=== PATIENT | female | born 1955 | race Caucasian/White ===

== ENCOUNTER → 2019-01-22 | Outpatient (CLI) | payer MEDICARE ==
[2019-01-26 13:08] LABS: HPV 16 Negative (Negative); HPV 18 Negative (Negative); HPV OTHER HR TYPES Negative (Negative)
== END ==
LOC: LAB SHORT 13:21 → LAB 13:21
PROVIDERS: Nurse Practitioner Family
DX: Z12.4 Encounter for screening for malignant neoplasm of cervix (principal)
CPT/HCPCS: 87070; 87077; 87186; 87205; 87624; G0145

== ENCOUNTER 2019-02-22 08:46 | Day surgery (SDC) | payer OTHER ==
[~2019-02-22] VITALS: Ht 157.5 cm; Wt 69.6 kg
--- NOTE | 2019-02-22 10:09 | NUR ---
02/22/19 1009 PAIGE ISABEL History, Chart, Medications and Allergies reviewed before start of procedure.MONITOR INTACT WITH CONTINUOUS PULSE OXIMETRY AND INTERMITTENT BP.3-LEAD EKG REVIEWED WITH PHYSICIAN PRIOR TO START OF PROCEDURE.O2 VIA N/C INTACT THROUGHOUT SEDATION/PROCEDURE. PATIENT DETERMINED TO BE ASA APPROPRIATE FOR PROPOFOL SEDATION PRIOR TO START OF PROCEDURE BY .
== END 2019-02-22 11:22 | disposition home or self-care (01) ==
LOC: ORSCMMR 08:46 → ORD 10:00 → ORSCMMR 11:22
PROVIDERS: Internal Medicine Gastroenterology
PROC: 0DBP8ZX Excision of Rectum, Via Natural or Artificial Opening Endoscopic, Diagnostic (ICD-10-PCS; principal; 2019-02-22 10:00)
PROC: 0DBH8ZX Excision of Cecum, Via Natural or Artificial Opening Endoscopic, Diagnostic (ICD-10-PCS; principal; 2019-02-22 10:00)
DX: Z12.11 Encounter for screening for malignant neoplasm of colon (principal); Z80.0 Family history of malignant neoplasm of digestive organs; D12.0 Benign neoplasm of cecum; K62.1 Rectal polyp; I10 Essential (primary) hypertension
CPT/HCPCS: 88305; J2704; J7120

== ENCOUNTER 2019-06-14 08:25 | Observation (INO) | payer MEDICARE ==
[~2019-06-14] VITALS: Ht 157.5 cm; Wt 70.2 kg
--- NOTE | 2019-06-14 09:25 | NUR ---
Ambulatory in Day Surgery History, Chart, Medications and Allergies reviewed before start of procedure. Lungs clear T/O to Auscultation. Patient States Post-Procedure ride home has been arranged.
--- NOTE | 2019-06-14 10:08 | NUR ---
06/14/19 1008 Frank Najera History, Chart, Medications and Allergies reviewed before start of procedure.MONITOR INTACT WITH CONTINUOUS PULSE OXIMETRY AND INTERMITTENT BP.3-LEAD EKG REVIEWED WITH PHYSICIAN PRIOR TO START OF PROCEDURE.O2 VIA N/C INTACT THROUGHOUT SEDATION/PROCEDURE. PATIENT DETERMINED TO BE ASA APPROPRIATE FOR PROPOFOL SEDATION PRIOR TO START OF PROCEDURE BY DR. VARGAS.
--- NOTE | 2019-06-14 11:20 | NUR ---
PT TO STEP DOWN, ALERT AND ORIENTED. DR VARGAS WANTS PT ADMIT TO SURGICAL FLOOR FOR OBS. FAMILY AT BEDSIDE. AWAITING ORDERS FROM HOUSE SUP.
--- NOTE | 2019-06-14 11:24 | NUR ---
ROOM ASSIGNMENT RECEIVED. 227.
--- NOTE | 2019-06-14 11:49 | NUR ---
REPORT TO XAVIER KAY ON SURG FLOOR.
--- NOTE | 2019-06-14 12:09 | NUR ---
PT ARRIVED TO UNIT FROM DAY SURGERY FOR EXTENDED RECOVERY FOLLOWING COLONOSCOPY W/BX. PT A/O, DENIES ANY PAIN AT THIS TIME. TOLERATING CLEAR LIQUIDS WITH NO C/O N/V AT THIS TIME.
--- NOTE | 2019-06-14 14:19 | NUR ---
DISCHARGE PT DISCHARGED HOME FROM UNIT AT APROX 1410 FOLLOWING EXTENDED RECOVERY. PT GIVEN WRITTEN AND VERBAL DISCHARGE INSTRUCTIONS AND VERBALIZED UNDERSTANDING OF THESE INSTRUCTIONS. IV REMOVED, PT TOLERATED WELL. DECLINES WHEELCHAIR ASSISTANCE TO CAR-AMBULATED INDEPENDENTLY WITH .
== END 2019-06-14 14:10 | disposition home or self-care (01) ==
LOC: ORSCMMR 08:25 → ORD 09:30 → ORSCMMR 11:24 → SURS 11:24 → ORSCMMR 11:49 → SURS 11:49
PROVIDERS: ADMIT Internal Medicine Gastroenterology
PROC: 0DBH8ZZ Excision of Cecum, Via Natural or Artificial Opening Endoscopic (ICD-10-PCS; principal; 2019-06-14 09:30)
DX: D12.0 Benign neoplasm of cecum (principal); Z80.0 Family history of malignant neoplasm of digestive organs
CPT/HCPCS: 88305; 90686; A9270; J2543; J2704; J3010; J7120

== ENCOUNTER 2020-07-06 07:07 | Day surgery (SDC) | payer MEDICARE ==
[~2020-07-06] VITALS: Ht 157.5 cm; Wt 68.7 kg
--- NOTE | 2020-07-06 07:45 | NUR ---
Ambulatory in Day Surgery.Patient states colon prep results clear/yellow. History, Chart, Medications and Allergies reviewed before start of procedure.Lungs clear T/O to Auscultation. Patient confirms NPO status and agrees with scheduled surgery. Pre-Op teaching done. Pt verbalizes understanding. Patient States Post-Procedure ride home has been arranged.
--- NOTE | 2020-07-06 08:09 | NUR ---
07/06/20 0809 Sheryl Raza History, Chart, Medications and Allergies reviewed before start of procedure.PATIENT DETERMINED TO BE ASA APPROPRIATE FOR PROPOFOL SEDATION PRIOR TO START OF PROCEDURE BY .MONITOR INTACT WITH CONTINUOUS PULSE OXIMETRY AND INTERMITTENT BP.3-LEAD EKG REVIEWED WITH PHYSICIAN PRIOR TO START OF PROCEDURE.O2 VIA N/C INTACT THROUGHOUT SEDATION/PROCEDURE.
--- NOTE | 2020-07-06 08:40 | NUR ---
RECIEVED PATIENT AND REPORT VSS PATIENT CONTINUES TO SLEEP
--- NOTE | 2020-07-06 09:11 | NUR ---
GETTING DRESSED AT THIS TIME. Discharge instructions reviewed with patient. Patient verbalizes understanding. Copy given to patient to take home. Patient States Post-Procedure ride home has been arranged. Discharged via wheelchair to private car for ride home.
== END 2020-07-06 09:17 | disposition home or self-care (01) ==
LOC: ORSCMMR 07:07 → ORD 08:00 → ORSCMMR 08:00
PROVIDERS: Internal Medicine Gastroenterology
PROC: 0DBH8ZX Excision of Cecum, Via Natural or Artificial Opening Endoscopic, Diagnostic (ICD-10-PCS; principal; 2020-07-06 08:00)
DX: D12.0 Benign neoplasm of cecum (principal); K57.30 Diverticulosis of large intestine without perforation or abscess without bleeding; K64.8 Other hemorrhoids; Z80.0 Family history of malignant neoplasm of digestive organs
CPT/HCPCS: 88305; J2704; J7120

== ENCOUNTER → 2021-06-04 | Outpatient (CLI) | payer MEDICARE | END | disposition home or self-care (01) | LOC: LAB 11:10 → LAB SHORT 11:10 | DX: D22.39 Melanocytic nevi of other parts of face (principal); D36.17 Benign neoplasm of peripheral nerves and autonomic nervous system of trunk, unspecified; D36.12 Benign neoplasm of peripheral nerves and autonomic nervous system, upper limb, including shoulder | CPT/HCPCS: 88305 ==